=== PATIENT | female | born 1975 | race Caucasian/White ===

== ENCOUNTER 2016-06-14 06:46 | Day surgery (SDC) | payer OTHER ==
[~2016-06-14] VITALS: Ht 177.8 cm; Wt 61.4 kg
[~2016-06-14 06:46] MED LIST: THYR16.2 PO
[2016-06-14] MEDS ORDERED: SODIUM CHLORIDE 0.9% 1,000 ML IV ONE ×2 (07:07→07:30)
[2016-06-14] MEDS ORDERED: CeFAZolin 1 GM/DEXTROSE 50 ML IV ONE ×2 (07:07→09:00)
[2016-06-14] MEDS ORDERED: SODIUM CHLORIDE 0.9% 1,000 ML IV SCH (07:30)
[2016-06-14] MEDS ORDERED: LORazepam 2 MG/ML VIAL IVP PRN (08:00)
[2016-06-14] MEDS ORDERED: LORazepam 2 MG/ML VIAL ONE (09:28)
[2016-06-14] MEDS ORDERED: MIDAZOLAM HCL 2 MG/2 ML VIAL ONE (10:06)
[2016-06-14] MEDS ORDERED: FentaNYL CITRATE-PF 100 MCG/2 ML VIAL ONE (10:06)
[2016-06-14] MEDS ORDERED: LIDOCAINE HCL/PF 1% 30 ML VIAL ONE (10:07)
[2016-06-14] MEDS ORDERED: HYDROmorphone HCL 2 MG TABLET PO ONE ×2 (12:15→12:30)
[2016-06-14] MEDS ORDERED: HYDROmorphone HCL 2 MG TABLET ONE (12:36)
== END 2016-06-14 13:20 | disposition home or self-care (01) ==
LOC: SDS 06:46 → EDSTATUS 09:00 → SDS 13:20
PROVIDERS: ATTEND Radiology Diagnostic Radiology
DX: N63 Unspecified lump in breast (principal); R22.9 Localized swelling, mass and lump, unspecified
CPT/HCPCS: 17110; 19105; 84703; C2618; J0690; J2250; J3010; J3490; J7030; J2060